=== PATIENT | male | born 1960 | race Hispanic/Latino ===

== ENCOUNTER 2022-11-01 06:19 | Day surgery (SDC) | payer OTHER ==
[2022-10-28 10:48] LABS: BASOPHILS % (AUTO) 0.5 % (0.0-5.0); EOSINOPHILS % (AUTO) 3.3 % (0.0-8.0); HEMATOCRIT 39.6 % (42-54); LYMPHOCYTES % (AUTO) 10.7 % (21.0-51.0); MEAN CORPUSCULAR HEMOGLOBIN 24.9 pg (27.0-33.0); MEAN CORPUSCULAR HGB CONC 29.3 g/dL (32.0-36.0); MEAN CORPUSCULAR VOLUME 85.2 fL (79-99); MONOCYTES % (AUTO) 5.3 % (3.0-13.0); NEUTROPHILS % (AUTO) 79.8 % (40.0-77.0); PLATELET COUNT (AUTO) 293 K/uL (130-400); RED BLOOD CELL COUNT(AUTO) 4.65 MIL/uL (4.50-6.20); RED CELL DISTRIBUTION WIDTH 19.3 % (11.0-15.5); WHITE BLOOD COUNT (AUTO) 7.3 K/uL (4.8-10.8)
[2022-10-28 11:01] LABS: ALBUMIN 3.5 g/dL (3.5-5.0); BILIRUBIN,DIRECT 0.3 mg/dL (0.0-0.3); CREATININE 0.8 mg/dL (0.5-1.5)
[2022-10-28 11:15] VITALS: BP 137/55
[2022-11-01] VITALS (18 sets, daily range): BP systolic 115–144; BP diastolic 62–91
[~2022-11-01] VITALS: Ht 180.3 cm; Wt 127.0 kg
[~2022-11-01 06:19] MED LIST: AEC81 PO; AMLO-258 PO; ATOR40TA69 PO; BUME1TAB6 PO; CARV40CR PO; DIGO125T71 PO; INSLAN SQ; INSU100C14 SQ; LOSA100T59 PO; RIVA20TA PO; SERT-439 PO
[2022-11-01] MEDS ORDERED: CEFAZOLIN SODIUM 2 GM VIAL ONE (06:40)
[2022-11-01] MEDS ORDERED: 0.9%NACL 1000ML 1,000 ML IV ONE (06:40)
[2022-11-01] MEDS ORDERED: GLYCOPYRROLATE 1 MG/5 ML SYRINGE ONE (06:51)
[2022-11-01] MEDS ORDERED: DEXAMETHASONE SOD PHOSPHATE 10MG/ML 1ML VIAL ONE (06:51)
[2022-11-01] MEDS ORDERED: SUCCINYLCHOLINE 200MG/10ML SYR ONE (06:51)
[2022-11-01] MEDS ORDERED: LIDOCAINE PF 100MG/5ML (2%) SYRINGE 5ML ONE (06:51)
[2022-11-01] MEDS ORDERED: MIDAZOLAM HCL 1 MG/ML 2ML VIAL ONE (06:52)
[2022-11-01] MEDS ORDERED: ONDANSETRON 4MG INJ ONE (06:52)
[2022-11-01] MEDS ORDERED: FENTANYL CITRATE PF 50 MCG/1 ML 2ML VIAL ONE (06:52)
[2022-11-01] MEDS ORDERED: NEOSTIGMINE 5MG/5ML SYR IV ONE (06:52)
[2022-11-01] MEDS ORDERED: ROCURONIUM 10MG/1ML SYR 10 MG/ML ML ONE (06:52)
[2022-11-01] MEDS ORDERED: PROPOFOL 10 MG/ML 20ML VIAL IV ONE (06:52)
[2022-11-01] MEDS ORDERED: BUPIVACAINE/EPI/PF 0.25% 30ML VIAL IJ SCH (07:00)
[2022-11-01] MEDS ORDERED: EPHEDRINE SULFATE 50 MG/ML AMPULE ONE (07:47)
[2022-11-01] MEDS ORDERED: ALBUMIN (HUMAN) 5% 500 ML IV ONE (07:48)
[2022-11-01] MEDS ORDERED: DOCU-116 PO (08:19)
[2022-11-01] MEDS ORDERED: TRAM50TA4 PO (08:22)
[2022-11-01] MEDS ORDERED: METH-662 PO (08:22)
[2023-01-01] MEDS ORDERED: TAMS-1 PO (11:25)
== END 2022-11-01 10:20 | disposition home or self-care (01) ==
LOC: DAH 06:19
PROVIDERS: ATTEND Surgery
DX: K40.90 Unilateral inguinal hernia, without obstruction or gangrene, not specified as recurrent (principal); Z20.822 Contact with and (suspected) exposure to COVID-19; I11.0 Hypertensive heart disease with heart failure; I50.9 Heart failure, unspecified; I25.10 Atherosclerotic heart disease of native coronary artery without angina pectoris; I49.5 Sick sinus syndrome; E11.9 Type 2 diabetes mellitus without complications; F40.01 Agoraphobia with panic disorder; E66.9 Obesity, unspecified; D64.9 Anemia, unspecified; E78.00 Pure hypercholesterolemia, unspecified; Z87.891 Personal history of nicotine dependence; Z82.49 Family history of ischemic heart disease and other diseases of the circulatory system; Z98.890 Other specified postprocedural states; Z98.49 Cataract extraction status, unspecified eye; Z95.5 Presence of coronary angioplasty implant and graft; Z86.73 Personal history of transient ischemic attack (TIA), and cerebral infarction without residual deficits; Z68.39 Body mass index [BMI] 39.0-39.9, adult; Z79.4 Long term (current) use of insulin; Z79.82 Long term (current) use of aspirin; Z79.899 Other long term (current) drug therapy
CPT/HCPCS: 80076; 80048; 85025; 87426; 36415; 49650; 82948 ×2; A6260; A4663; J7120; A4606; A4344; P9045; J3010; J0330; J3490 ×3; J1100; J2710; J7030; J2001; J2250; J2704; J2405; J0690; C9250; C1769 ×2; A4649 ×2; C1781; A5120; A4215; A4223; A4222; A4221; A4600